=== PATIENT | male | born 1990 | race Caucasian/White ===

== ENCOUNTER 2017-06-27 21:06 | Emergency (ER) | payer MEDICAID ==
[~2017-06-27] VITALS: Ht 170.2 cm; Wt 165.0 kg
[2017-06-27 21:10] VITALS: BP 114/70
[2017-06-27 21:25] LABS: HEMATOCRIT 53.2 % (39.2-51.8); HEMOGLOBIN 18.1 g/dL (13.7-18.0); WHITE BLOOD COUNT 7.3 x10^3/uL (3.4-10)
[2017-06-27 21:34] LABS: BLOOD UREA NITROGEN 21 mg/dL (7-18)
== END 2017-06-27 22:33 | disposition home or self-care (01) ==
LOC: ED 22:12
DX: R56.9 Unspecified convulsions (principal); F17.200 Nicotine dependence, unspecified, uncomplicated
CPT/HCPCS: 36415; 80048; 82040; 85025; 93005; 99285